=== PATIENT | female | born 1990 | race Caucasian/White ===

== ENCOUNTER 2016-08-22 12:03 | Emergency (ER) | payer OTHER ==
[~2016-08-22] VITALS: Ht 160 cm; Wt 73.5 kg
[~2016-08-22 12:03] MED LIST: ASCO250T6 PO; Iron PO; PREN1TAB69 PO
[2016-08-22 12:09] VITALS: BP 129/82; PULSE 97; RESP 0; O2SAT 98
[2016-08-22 12:33] LABS: BASOPHILS % (AUTO) 0.6 % (0-3); EOSINOPHILS % (AUTO) 3.4 % (0-5); MONOCYTES % (AUTO) 17.9 % (4-12); Mean Corpuscular Hemoglobin 29.3 pg (27.0-35.0); Mean Corpuscular Volume 89.4 fL (81-100); NEUTROPHILS % (AUTO) 53.6 % (40-74); Platelet Count 251 bil/L (150-400)
[2016-08-22 12:43] LABS: APPEARANCE,URINE HAZY (CLEAR,HAZY); COLOR,URINE YELLOW (YELLOW); OCCULT BLOOD,URINE NEGATIVE (NEGATIVE); UROBILINOGEN,URINE NORMAL (NORMAL)
[2016-08-22 12:53] LABS: Magnesium 1.8 mg/dL (1.6-2.6)
[2016-08-22 14:40] VITALS: BP 142/96; PULSE 84; RESP 20
--- NOTE | 2016-08-22 15:11 | ED.REPORT ---
HPI-General Illness Date of Service Aug 22, 2016 ED Provider: Aniceto Mott MD 26 year old female presents to the ED due to worsening LLQ abd pain that has been constant for 2 days. She reports pain radiation to right lower quadrant. She describes the pain as sharp and throbbing. Pt has a history of ovarian cysts , and reports that this feels similar. She also has a history of ovarian torsion 6 months ago, which was reportedly treated non-surgically. Associated symptoms include nausea, but she denies vomiting, fever, chills and dysuria. Pt is sexually active with her girlfriend. She denies any known STI's or hx of PID. LMP: Early July, irregular Nursing Notes Stated Complaint: CYSTS ON OVARY/ANDOMINAL PAIN Chief Complaint: Female Abdominal Pain Nursing Notes Reviewed: Yes Allergies: Coded Allergies: Penicillins (Verified Allergy, Unknown, 08/22/16) Scheduled PRN Hydrocodone-Acetaminophen 5-325 mg (Hydrocodone-Acetaminophen 5-325 mg) 1 Each Tablet 1 TABLET PO Q4H PRN PRN For Pain Ibuprofen (Ibuprofen) 600 Mg Tablet 600 MG PO QID PRN PRN For Pain Ondansetron ODT (Zofran ODT) 4 Mg Tablet 4 MG PO Q4H PRN PRN For Nausea General Time Seen by MD: 14:53 Chief Complaint Abdominal pain Hx Obtained From: Patient Arrived By: Walk-in Sudden in Onset?: No Onset Occurred: 2 days ago Symptom Duration: Since onset Location: : Abdomen Quality: Painful, Sharp, Throbbing Severity: Current: Moderate Associated with: Reports: Nausea, Denies: Vomiting Pertinent Negative: Relieved by nothing Similar Sx Previous: Yes Past Medical History Past Medical History Ovarian torsion Ruptured ovarian cyst Depression Past Surgical History Reports: Smoking History Former Smoker Social History Alcohol Use: Denies alcohol use Ambulatory Status Independent Review of Systems Full Review of Systems Constitutional: Denies: Chills, Fever Respiratory: Denies: Non-productive cough, Shortness of breath Cardiovascular: Denies: Chest pain, Edema GI: Reports: Abdominal pain, Nausea, Denies: Diarrhea, Vomiting Female: Denies: Dysuria, Flank pain, , Vaginal bleeding - abnl, Vaginal discharge Musculoskeletal: Denies: Back pain, Extremity pain Skin: Denies Diaphoresis, Denies Rash Neurologic: Denies: Change LOC, Headache, Lightheaded Complete sys rev & neg: except as marked. Physical Exam Vital Signs Vital Signs Date Time Temp Pulse Resp B/P Pulse Ox O2 Delivery O2 Flow Rate FiO2 08/22/16 17:49 71 18 133/87 97 Room Air 08/22/16 14:40 37 84 20 142/96 Room Air 08/22/16 12:09 36.3 97 0 129/82 98 Room Air Initial VS: Reviewed General/Constitutional: Well-developed, Well-nourished Head / Eyes: Atraumatic, Normocephalic, PERRL ENT: Mucous membranes moist, Conjunctiva normal, No scleral icterus Neck: Supple, Full range of motion Respiratory: Breath sounds normal, Clear to auscultation, No respiratory distress Cardiovascular: Regular rate & rhythm, Heart sounds normal, Intact distal pulses Back: No CVA tenderness (No percussive flank tenderness) Extremities: Vascular intact, Neuro intact, No swelling, No tenderness Skin: Warm, Dry, No cyanosis Neurologic: Alert, Oriented, Nonfocal Psychiatric: Mood/affect normal, Behavior normal, Normal thought content Abdomen: Soft (No rigidity), No guarding, No rebound Tenderness/Guarding/Rebound: Positive: Tender LLQ... Lower abd incision from . Interpretation & Diagnostics Lab Results Interpretation Result Diagram: 08/22/16 1225 08/22/16 1225 Test 08/22/16 12:22 08/22/16 12:25 Urine Color Yellow (YELLOW) Urine Appearance Hazy (CLEAR,HAZY) Urine pH 6.0 (5.0-8.0) Urine Specific Arnold 1.020 (1.003-1.035) Urine Protein Negativemg/dL (NEG,TRACE) Urine Glucose (UA) Negativemg/dL (NEGATIVE) Urine Ketones Negativemg/dL (NEGATIVE) Urine Occult Blood Negative (NEGATIVE) Urine Nitrite Negative (NEGATIVE) Urine Bilirubin Negative (NEGATIVE) Urine Urobilinogen Normalmg/dL (NORMAL) Urine Leukocyte Esterase Negative (NEGATIVE) Urine RBC 0-2/hpf (0-2) Urine WBC 0-5/hpf (0-5) Urine Epithelial Cells Moderate/hpf (NONE-MOD) Urine Crystals None seen (NONE SEEN) Urine Bacteria Many/hpf (NONE-FEW) Urine Hyaline Casts None/lpf (NONE) Urine Granular Casts None seen (NONE SEEN) Urine Waxy Casts None seen (NONE SEEN) Urine Red Blood Cell Casts None seen (NONE SEEN) Urine White Blood Cell Casts None seen (NONE SEEN) Urine Mucus None seen (None Seen) Urine Trichomonas None seen (NONE SEEN) Urine Yeast None (NONE SEEN) Urinalysis Comment None Urine Culture Reflexed Indicated White Blood Count 7.0th/mm3 (3.8-10.1) Red Blood Count 4.43mil/mm3 (3.90-5.20) Hemoglobin 13.0g/dL (12.0-15.6) Hematocrit 39.6% (35.0-46.0) Mean Corpuscular Volume 89.4fL (81-100) Mean Corpuscular Hemoglobin 29.3pg (27.0-35.0) Mean Corpuscular Hemoglobin Concent 32.8% (32.0-37.0) Red Cell Distribution Width 13.3% (12.3-15.4) Platelet Count 251bil/L (150-400) Neutrophils (%) (Auto) 53.6% (40-74) Lymphocytes (%) (Auto) 24.4% (14-46) Monocytes (%) (Auto) 17.9% (4-12) Eosinophils (%) (Auto) 3.4% (0-5) Basophils (%) (Auto) 0.6% (0-3) Sodium Level 137mEq/L (134-144) Potassium Level 4.4mEq/L (3.5-5.2) Chloride Level 102mEq/L (97-108) Carbon Dioxide Level 23mmol/L (18-29) Blood Urea Nitrogen 8mg/dL (6-20) Creatinine 0.52mg/dL (0.57-1.00) Estimat Glomerular Filtration Rate 206mL/min (>59) Glucose Level 98mg/dL (60-99) Lactic Acid Level 1.0mmol/L (0.4-2.0) Calcium Level 8.8mg/dL (8.5-10.1) Magnesium Level 1.8mg/dL (1.6-2.6) Total Bilirubin 0.2mg/dL (0.0-1.2) Aspartate Amino Transf (AST/SGOT) 15U/L (0-50) Alanine Aminotransferase (ALT/SGPT) 9U/L (0-32) Alkaline Phosphatase 67U/L (25-150) Total Protein 7.2g/dL (6.4-8.4) Albumin 4.0g/dL (3.4-5.0) Lipase 33U/L (13-60) Hold Rivera Top Tube Received (Received) US Focused non-OB Pelvis IMPRESSION: Complex, thickwalled cyst involving the right ovary likely related to hemorrhagic ovarian cyst but differential would also include endometrioma. Recommend short-term followup pelvic ultrasound in 6-12 weeks. Dictated by: Sorin Benson RRA Interpreted: Tia Coker MD on 08/22/2016 at 16:36 Exam Interpreted by: Radiologist Re-Eval/Medical Decision Med Decision/Clinical Course In summary, the patient is a 26-year-old female with a history of possible previous spontaneously resolved ovarian torsion and hemorrhagic ovarian cysts who presents the emergency department for evaluation of lower abdominal pain. The patient is afebrile with stable vital signs and examination as above. The patient was treated with hydromorphone for pain, Zofran for nausea and IV fluids. CBC and CMP were unremarkable. was negative. Urinalysis was unconvincing for urinary tract infection though many bacteria were present. Her history primary concern was for ovarian torsion. Ultrasound with Doppler was really good flow to both ovaries though she did have bilateral hemorrhagic ovarian cysts R>L. I considered acute appendicitis however this seemed inconsistent with her overall presentation. We did not visualize her appendix on ultrasound however she had no fever or leukocytosis and her pain was similar to previous ovarian cysts. I am reassured by her negative test which argues against ectopic . He has no history of sexually transmitted infections or abnormal vaginal discharge suggestive of pelvic inflammatory disease or tubo-ovarian abscess. Her pain is most likely due to hemorrhagic ovarian cysts. She was provided with a prescription for pain and nausea medication. She will follow up with her primary care physician. We discussed the possibility of appendicitis and she is provided with follow-up and return precautions. She verbalized understanding and agreeable with the plan and was discharged in good condition. Time of Eval: 16:19 Re-Evaluation/Progress Note: Updated pt of labs, and imaging results. Awaiting pain meds. Discussed plan for discharge and follow up. All questions addressed. Counseled Regarding: Diagnosis, Lab results, Need for follow-up, When/why to return to ED Discharge & Departure Primary Impression: Hemorrhagic ovarian cyst Additional Impression: Abdominal pain Abdominal location: lower abdomen Qualified Code: R10.30 - Lower abdominal pain, unspecified Disposition: Home Discharge Condition All VS Reviewed: Yes Condition: Improved Patient Instructions: Ovarian Cyst (ED) Additional Instructions: Thank you for seeking care at [facility] emergency room. It is difficult for us to make definitive diagnoses in the ED but we believe that you are experiencing a hemorrhagic ovarian cyst. Our primary goal today in the ED was to evaluate you for any life-threatening conditions. Your evaluation was reassuring. You will be discharged with a prescription for [place],Ibuprofen and Zofran. You should follow-up with your primary doctor in the next week. You should return to the ED immediately if you develop severe, uncontrollable pain, fevers, vomiting, cough, shortness of breath, chest pain, lightheadedness , weakness or any other concerning signs or symptoms. Thank you for letting us partake in your care today. NARCOTIC INSTRUCTIONS (this will be added to the dc instructions) You have been prescribed a narcotic for pain relief. These drugs are usually combined with acetaminophen (Tylenol#3, Percocet, Darvocet, Anexsia, Vicodin) or aspirin (Empirin#3, Percodan, Synalogs-DC) for increased effect. Narcotics act on the central nervous system to reduce pain; they also impair mental alertness and physical abilities. We advise you not to drink alcohol, drive a car, or operate dangerous equipment when you are taking theses drugs. You can lessen stomach irritation from your medicine by taking it with meals or a full glass of water. Common side effects of narcotics are: Nausea and vomiting, heartburn, consitpation, dizziness, sleepiness, and mood changes. If you have bothersome side effects or symptoms of an allergic reaction (itching, hives, rash), stop taking your medicine and call your doctor or the emergency room right away. Please keep your narcotic medicine well out of the reach of children. Referrals: Viviana Cross MD (PCP) Scribe Attestation Portions of this note were transcribed by Eleni Arredondo. I, (Dr. Mott) personally performed the history, physical exam and medical decision-making; I reviewed and confirmed the accuracy of the information in the transcribed note. Signed by: Eleni Arredondo. 08/22/2016, [id number] copies to: Viviana Cross MD,Aniceto Thacker MD Aug 22, 2016 15:11 Eleni Arredondo Aug 22, 2016 15:17
[2016-08-22] MEDS ORDERED: 0.9% Sodium Chloride 1,000 ML IV ONE (15:16)
[2016-08-22] MEDS ORDERED: Ondansetron 2 mg/mL 2 mL Inj IVPUSH ONE (15:20)
[2016-08-22] MEDS ORDERED: IBUP-1827 PO (16:14)
[2016-08-22] MEDS ORDERED: ONDA4TAB9 PO (16:14)
[2016-08-22] MEDS ORDERED: HYDR-4003 PO (16:14)
[2016-08-22] MEDS: HYDROmorphone 0.5 mg/0.5 mL iSecure Syringe IVPUSH PRN ×2 (16:31→17:49)
--- NOTE | 2016-08-22 16:37 | DRSVH ---
PROCEDURE: US PELVIC SONOGRAM + TRANSVAGINAL SONOGRAM INDICATIONS: abd pain TECHNIQUE: Real-time scanning was performed of the pelvic organs, with image documentation. Additional endovagi nal scanning was necessary due to incomplete visualization of the adnexal and endometrial structures by transabdominal scanning. COMPARISON: None. FINDINGS: (orthogonal measurements) Uterus size: 8.24 cm, 3.54 cm, 4.92 cm Endometrium thickness: 1.35 cm Right ovary size: 4.68 cm, 5.39 cm, 4.13 cm Left ovary size: 5.12 cm, 2.47 cm, 3.09 cm Transabdominal scanning: Limited scanning through the kidneys shows no hydronephrosis. No pathologi c free abdominal or pelvic fluid. Endovaginal scanning: Uterus: Uterus is normal in size and appearance. Endometrium is within normal physiologic limits. Ovaries: Complex, thickwalled cyst involves the right ovary measuring 4.4 x 3.5 x 3.4 cm. Simple cys t involves the left ovary measuring roughly 27 mm. IMPRESSION: Complex, thickwalled cyst involving the right ovary likely related to hemorrhagic ovarian cyst but differential would also include endometrioma. Recommend short-term followup pelvic ultraso und in 6-12 weeks. Dictated by: Sorin GAN Interpreted: Tia Coker MD on 08/22/2016 at 16:36 Transcribed by: HERBERTH on 08/22/2016 at 16:36 Approved by: Tia Coker MD, PhD on 08/22/2016 at 17:10
[2016-08-22 17:49] VITALS: BP 133/87; PULSE 71; RESP 18; O2SAT 97
== END 2016-08-22 17:50 | disposition home or self-care (01) ==
LOC: SED 12:03
DX: N83.291 Other ovarian cyst, right side (principal); Z87.891 Personal history of nicotine dependence; Z88.0 Allergy status to penicillin
CPT/HCPCS: 36415; 76830; 76856; 80053; 81000; 81025; 83605; 83690; 83735; 85025; 87086; 87088; 96374; 96375; 96376; 99285; J1170; J2405; J7030